=== PATIENT | female | born 1980 | race American Indian/Alaskan Native ===

== ENCOUNTER 2018-08-14 23:20 | Emergency (ER) | payer MEDICAID ==
[2018-08-14 23:44] VITALS: BP 179/116
[2018-08-15 00:27] LABS: Basophils % (Auto) 0.7 % (0.0-1.8); Eosinophils # (Auto) 0.2 K/mm3 (0.0-0.4); Eosinophils % (Auto) 2.2 % (0.0-4.3); Hemoglobin 15.4 gm/dl (10.1-14.3); Lymphocytes # (Auto) 3.4 K/mm3 (1.2-5.4); Lymphocytes % (Auto) 46.1 % (13.4-35.0); Mean Corpuscular HGB Conc 35 % (30-34); Mean Corpuscular Hemoglobin 32 pg (28-32); Mean Corpuscular Volume 92 fl (79-97); Monocytes # (Auto) 0.8 K/mm3 (0.0-0.8); Monocytes % (Auto) 10.3 % (0.0-7.3); Platelet Count 250 K/mm3 (140-440); Red Cell Distribution Width 14.9 % (13.2-15.2)
[2018-08-15 00:40] LABS: INR 0.94 (0.87-1.13)
[2018-08-15 00:41] LABS: Partial Thromboplastin Time 28.6 Sec. (24.2-36.6)
[2018-08-15 00:42] LABS: BUN/Creatinine Ratio 10; Blood Urea Nitrogen 6 mg/dL (7-17); Calcium 9.3 mg/dL (8.4-10.2); Hemolysis Index 2
[2018-08-15 02:35] LABS: HCG Qualitative,Urine Negative (Negative)
== END 2018-08-15 03:00 | disposition left against medical advice (07) ==
LOC: ED 23:20
DX: R51 Headache (principal); Z53.21 Procedure and treatment not carried out due to patient leaving prior to being seen by health care provider
CPT/HCPCS: 36415; 80048; 81025; 84484; 85025; 85610; 85670; 85730; 93005; 93010

== ENCOUNTER 2018-08-15 08:47 | Emergency (ER) | payer MEDICAID ==
[2018-08-15] MEDS ORDERED: NORCO 7.5/325 PO ONE (09:28)
[2018-08-15] MEDS ORDERED: CATAPRES PO ONE ×2 (09:28→09:53)
--- NOTE | 2018-08-15 09:48 | Emergency Department Report ---
ED General Adult HPI - General Chief complaint: Headache Stated complaint: HEAD PAIN Time Seen by Provider: 08/15/18 09:18 Source: patient Mode of arrival: Ambulatory Limitations: No Limitations - History of Present Illness Initial comments: Patient is a 38-year-old [place] female who states she's had 2 days of headache. Patient states that her blood pressure is running high than normal. She states she's been on Norvasc 5 mg daily for the past month. Patient denies any nausea vomiting chest pain shortness of breath or neurological deficits at this time. Patient denies any head trauma. Patient states the headache is at the top of her head and feels as though her top of the head is going to come off. Patient states is throbbing aching sensation is a 6 out of 10 in severity. States her last meal was some [place] fries - Related Data Previous Rx's Medication Instructions Recorded Last Taken Type Amlodipine Besylate [Norvasc] 10 mg PO DAILY #30 tablet 08/15/18 Unknown Rx Allergies Allergy/AdvReac Type Severity Reaction Status Date / Time No Known Allergies Allergy Verified 08/14/18 23:53 ED Review of Systems ROS: Stated complaint: HEAD PAIN Other details as noted in HPI Comment: All other systems reviewed and negative ED Past Medical Hx - Past Medical History Previous Medical History?: Yes Hx Hypertension: Yes - Surgical History Past Surgical History?: Yes Additional Surgical History: throat - Social History Smoking Status: Current Every Day Smoker Substance Use Type: None - Medications Home Medications: Home Medications Medication Instructions Recorded Confirmed Last Taken Type Amlodipine Besylate [Norvasc] 10 mg PO DAILY #30 tablet 08/15/18 Unknown Rx ED Physical Exam - General Limitations: No Limitations General appearance: alert, in no apparent distress - Head Head exam: Present: atraumatic, normocephalic - Eye Eye exam: Present: normal appearance - ENT ENT exam: Present: mucous membranes moist - Neck Neck exam: Present: normal inspection - Respiratory Respiratory exam: Present: normal lung sounds bilaterally. Absent: respiratory distress, wheezes, rales, rhonchi - Cardiovascular Cardiovascular Exam: Present: regular rate, normal rhythm. Absent: systolic murmur, diastolic murmur, rubs, gallop - GI/Abdominal GI/Abdominal exam: Present: soft, normal bowel sounds. Absent: distended, tenderness, guarding - Extremities Exam Extremities exam: Present: normal inspection - Back Exam Back exam: Present: normal inspection - Neurological Exam Neurological exam: Present: alert, oriented X3 - Psychiatric Psychiatric exam: Present: normal affect, normal mood - Skin Skin exam: Present: warm, dry, intact, normal color. Absent: rash ED Course Vital Signs 08/15/18 09:01 Temperature 98.8 F Pulse Rate 73 Respiratory 16 Rate Blood Pressure 172/96 O2 Sat by Pulse 95 Oximetry ED Medical Decision Making - Medical Decision Making Patient is a 38-year-old black female whose blood pressure was elevated on arrival. Patient was given 0.2 mg Catapres and Norvasc for headache. Patient be discharged home. Patient is only on 5 mg of Norvasc at this time the doses been increased to 10 mg daily patient will follow with her primary care physician. Been instructed to wash these salt intake in her diet. Critical care attestation.: If time is entered above; I have spent that time in minutes in the direct care of this critically ill patient, excluding procedure time. ED Disposition Clinical Impression: Hypertensive urgency Disposition: DC-01 TO HOME OR SELFCARE Is pt being admited?: No Does the pt Need Aspirin: No Condition: Stable Instructions: Hypertension (ED) Prescriptions: Amlodipine Besylate [Norvasc] 10 mg PO DAILY #30 tablet Referrals: PRIMARY CARE, [Primary Care Provider] - 3-5 Days Time of Disposition: 09:48
[2018-08-15] MEDS ORDERED: CATAPRES ONE (09:54)
[2018-08-15 09:55] VITALS: BP 150/96
== END 2018-08-15 10:20 | disposition home or self-care (01) ==
LOC: ED 08:47
DX: I16.0 Hypertensive urgency (principal); F17.200 Nicotine dependence, unspecified, uncomplicated
CPT/HCPCS: 99282